=== PATIENT | female | born 1990 | race Caucasian/White ===

== ENCOUNTER 2018-06-29 16:56 | Inpatient (IN) | payer OTHER ==
[2018-06-29] MEDS ORDERED: ACETAMINOPHEN TAB 325 MG TAB PO STA (19:00)
[2018-06-29] MEDS ORDERED: SODIUM CHLORIDE 0.9% 1,000 ML IV ONE (19:00)
[2018-06-29 19:36] LABS: Basophils # (A) 0.1 k/uL (0-0.2); Basophils % (A) 1 %; Eosinophils # (A) 0.1 k/uL (0-0.7); Eosinophils % (A) 2 %; HCT 38.8 % (34.0-46.0); HGB 13.2 gm/dL (11.4-16.0); Lymphocytes # (A) 0.9 k/uL (1.0-4.8); Lymphocytes % (A) 17 %; MCH 30.7 pg (25.0-35.0); MCHC 34.2 g/dL (31.0-37.0); Mean Platelet Volume 7.3; Monocytes # (A) 0.2 k/uL (0-1.0); Monocytes % (A) 4 %; Neutrophils # (A) 3.7 k/uL (1.3-7.7); Neutrophils % (A) 74 %; Platelet Count 198 k/uL (150-450); RBC 4.31 m/uL (3.80-5.40); RDW 13.7 % (11.5-15.5)
[2018-06-29 19:44] LABS: ALT 134 U/L (9-52); AST 85 U/L (14-36); Albumin 3.8 g/dL (3.5-5.0); Alkaline Phosphatase 45 U/L (38-126); Anion Gap 8 mmol/L; Blood Urea Nitrogen 23 mg/dL (7-17); Calcium 9.1 mg/dL (8.4-10.2); Carbon Dioxide 24 mmol/L (22-30); Chloride 111 mmol/L (98-107); Glucose 80 mg/dL (74-99); Potassium 4.4 mmol/L (3.5-5.1); Sodium 143 mmol/L (137-145); Total Bilirubin 1.1 mg/dL (0.2-1.3); Total Protein 6.7 g/dL (6.3-8.2)
[2018-06-29 20:01] LABS: INR 1.4 (<1.2); Partial Thromboplastin Time 28.1 sec (22.0-30.0); Prothrombin Time 13.9 sec (9.0-12.0)
--- NOTE | 2018-06-29 20:05 | CT ---
EXAMINATION TYPE: CT brain wo con DATE OF EXAM: 06/29/2018 COMPARISON: None HISTORY: AMS, confusion CT DLP: 1122.4 mGycm. Automated Exposure Control for Dose Reduction was Utilized. TECHNIQUE: CT scan of the head is performed without contrast. FINDINGS: Ventricles of normal size. There is no mass effect nor midline shift. There is no sign of i ntracranial hemorrhage. Calvarium is intact. IMPRESSION: Negative head CT scan.
--- NOTE | 2018-06-29 20:06 | XR ---
EXAMINATION TYPE: XR chest 2V DATE OF EXAM: 06/29/2018 COMPARISON: NONE HISTORY: Altered mental status TECHNIQUE: Frontal and lateral views of the chest are obtained. FINDINGS: Heart and mediastinum are normal. Lungs are clear. Diaphragm is normal. Bony thorax appear s normal. IMPRESSION: Normal chest
--- NOTE | 2018-06-29 20:06 | XR ---
EXAMINATION TYPE: XR ankle complete LT DATE OF EXAM: 06/29/2018 COMPARISON: NONE HISTORY: Pain TECHNIQUE: 3 views FINDINGS: Ankle mortise is anatomic. I see no fracture nor dislocation. Joint spaces are normal. IMPRESSION: Normal left ankle.
[2018-06-29 21:09] LABS: Appearance,Urine Cloudy (Clear); Bilirubin,Urine Negative (Negative); Blood,Urine Negative (Negative); Color,Urine Dark Yellow; Glucose,Urine (UA) Negative (Negative); Ketones,Urine Trace (Negative); Leukocyte Esterase,Urine Large (Negative); Mucus,Urine Occasional /hpf; Nitrite,Urine Negative (Negative); Protein,Urine 1+ (Negative); RBC,Urine 3 /hpf (0-5); Specific Gravity,Urine 1.029 (1.001-1.035); Squamous Epithelial Cell,Urine 7 /hpf (0-4); WBC,Urine 50 /hpf (0-5)
[2018-06-29 21:12] LABS: Amphetamine Screen,Urine Not Detected (NotDetected); Barbiturate Screen,Urine Not Detected (NotDetected); Benzodiazepines Screen,Urine Not Detected (NotDetected); Cocaine Screen,Urine Not Detected (NotDetected); Methadone Screen, Urine Not Detected (NotDetected); Opiate Screen,Urine Not Detected (NotDetected); Oxycodone Screen, Urine Not Detected (NotDetected); Phencyclidine Screen,Urine Not Detected (NotDetected); Tricyclic Antidepressant,Urine Not Detected (NotDetected); Urn Cannabinoid Scrn Not Detected (NotDetected)
--- NOTE | 2018-06-29 21:31 | ED ---
Recheck HPI <Carlos Eduardo Maki - Last Filed: 06/29/18 23:28> - General Source: patient Mode of arrival: EMS Limitations: no limitations <Maria L Montiel - Last Filed: 06/30/18 00:16> - General Chief Complaint: Recheck/Abnormal Lab/Rx Stated Complaint: Leg pain, confusion Time Seen by Provider: 06/29/18 18:29 - History of Present Illness Initial Comments: This is a 28 year old female who denies past medical history presenting today for multiple complaints. Patient states that she has felt confused the past 1- 2 days as well as having tingling in her feet bilaterally. She states this caused her to fall this morning twisting her left ankle. She states is because the lights were off due to sensation in her feet. Patient denies falling hitting her head or injury to any other extremity. She denies swelling of the left ankle. Patient states that the paresthesias in the feet bilaterally have been ongoing for the past 2 months. Patient states that about a month ago she had similar episode of confusion asking one to 2 days. Asked her to describe further which she got by confusion and she stated short-term memory loss, she is coming by friends who state that doesn't seem to be herself, more fatigued than normal with occasional slurred speech. She denies this occurring prior to 2 months ago. She states she presented at [facility] where she was diagnosed with gastroenteritis and paresthesias. Patient states she does not have any diarrhea, nausea, vomiting or abdominal pain. She is not sure why she was diagnosed with gastroenteritis. She did mention that a month prior she had one episode of vomiting and flulike symptoms however these symptoms have long since subsided. Patient denies any chest pain, lower extremity edema, dysuria, dyspnea exertion, headaches, dizziness, diplopia, visual loss or visual changes , syncope, head injury, nausea, vomiting, diarrhea, fever, chills, cough, urgency, frequency, dysuria, abnormal vaginal bleeding or discharge. Upon arrival patient is alert and oriented 3. Patient is complaining of left ankle pain, she was brought to EMS. VS revealed 100.1F temperature and elevation of HR. Remainder unremarkable. (Maria L Montiel) - Related Data Home Medications Medication Instructions Recorded Confirmed No Known Home Medications 06/29/18 06/29/18 Allergies Allergy/AdvReac Type Severity Reaction Status Date / Time nickel Allergy Unknown Verified 06/29/18 17:23 Review of Systems ROS Other: All systems not noted in ROS Statement are negative. <Carlos Eduardo Maki - Last Filed: 06/29/18 23:28> ROS Other: All systems not noted in ROS Statement are negative. Constitutional: Denies: fever, chills, night sweats ENT: Denies: ear pain, throat pain Respiratory: Denies: cough, dyspnea, wheezes, hemoptysis, stridor Cardiovascular: Denies: chest pain, palpitations, dyspnea on exertion, orthopnea , edema Endocrine: Reports: fatigue Gastrointestinal: Denies: abdominal pain, nausea, vomiting, diarrhea, constipation, hematemesis, melena, hematochezia Genitourinary: Denies: urgency, dysuria, frequency, hematuria, discharge, abnormal menses, dyspareunia Musculoskeletal: Denies: back pain Skin: Denies: rash, lesions Neurological: Reports: weakness, paresthesias, confusion. Denies: headache, numbness, abnormal gait, vertigo <Maria L Montiel - Last Filed: 06/30/18 00:16> ROS Statement: Those systems with pertinent positive or pertinent negative responses have been documented in the HPI. Past Medical History Past Medical History: No Reported History History of Any Multi-Drug Resistant Organisms: None Reported Past Surgical History: No Surgical Hx Reported Past Psychological History: No Psychological Hx Reported Smoking Status: Current every day smoker Past Alcohol Use History: Occasional Past Drug Use History: None Reported <Maria L Montiel - Last Filed: 06/30/18 00:16> General Exam <Carlos Eduardo Maki - Last Filed: 06/29/18 23:28> Limitations: no limitations <Maria L Montiel - Last Filed: 06/30/18 00:16> - General Exam Comments Initial Comments: General: The patient is awake and alert, in no distress. Pt appears lethargic Eye: +3 mm pupils are equal, round and reactive to light, extra-ocular movements are intact. No nystagmus. There is normal conjunctiva bilaterally. No signs of icterus. Ears, nose, mouth and throat: There are moist mucous membranes and no oral lesions. Neck: The neck is supple, there is no tenderness or JVD. No nuchal rigidity, negative Brudzinski's and Kernig. Cardiovascular: There is a regular rate and rhythm. No murmur, rub or gallop is appreciated. Respiratory: Lungs are clear to auscultation, respirations are non-labored, breath sounds are equal. No wheezes, stridor, rales, or rhonchi. Gastrointestinal: Soft, non-distended, non-tender abdomen without masses or organomegaly noted. There is no rebound or guarding present. No CVA tenderness. Bowel sounds are unremarkable. Musculoskeletal: No noted significant soft tissue swelling or ecchymosis of the left ankle. No gross deformity. Normal ROM at the ankles bilaterally, she does admit to tenderness with range of motion of the left ankle. Strength 5/5 of the lower extremity is equally bilaterally including at the left and right ankle. Sensation intact intact of the lower extremities equally bilaterally. DP pulses equal bilaterally 2+. Neurological: A&O x 2. CN II-XII intact, There are no obvious motor or sensory deficits. Coordination appears grossly intact. Speech appears slowed. Skin: Skin is warm and dry and no rashes or lesions are noted. Psychiatric: Cooperative, follows commands (Maria L Montiel) Course <Carlos Eduardo Maki - Last Filed: 06/29/18 23:28> <Maria L Montiel - Last Filed: 06/30/18 00:16> Vital Signs 06/29/18 06/29/18 06/29/18 17:10 20:07 21:08 Temperature 100.1 F H 98.4 F Pulse Rate 86 84 109 H Respiratory 18 18 18 Rate Blood Pressure 121/88 121/84 126/68 O2 Sat by Pulse 100 100 97 Oximetry 06/29/18 06/29/18 06/29/18 22:07 23:16 23:59 Temperature 97.6 F 98.0 F Pulse Rate 92 62 57 L Respiratory 18 18 18 Rate Blood Pressure 104/71 96/58 93/56 O2 Sat by Pulse 98 95 96 Oximetry - Reevaluation(s) Reevaluation #1: 06/29/18 23:29 PA supervision: I proceeded [id number] evaluation the patient she is brought in for altered mental status and abnormal behavior which is going on for some time or the past couple months. Her workup thus far is negative for any definitive processes she did have a recent viral infection per her significant other. It was noted that her liver enzymes are mildly elevated she does not demonstrate any evidence at this time of meningismus. No known family history of any neurological disorders. Patient does have apparently some history of anxiety and possibly some depressive issues. The patient will be admitted for further evaluation. Case is to be discussed with Epifanio Chery who is covering for Dr. Nance. I do agree with the current assessment and plan. (Carlos Eduardo Maki) Medical Decision Making - Lab Data Result diagrams: 06/29/18 18:00 06/29/18 18:00 <Carlos Eduardo Maki - Last Filed: 06/29/18 23:28> - Lab Data Result diagrams: 06/29/18 18:00 06/29/18 18:00 <Maria L Montiel - Last Filed: 06/30/18 00:16> - Medical Decision Making 28yo presenting for altered mental status on off x1.5 months, b/l parathesias and left ankle injury. AAOx2- pt could not state the name of hospital despite being told by family multiple times. Laboratory findings concerning for dehydration. Lactic negative, ammonia negative, mild elevation of liver enzymes. Chest x-ray negative, CT without contrast negative no focal neurological deficit on examination. No meningeal irritation signs. Patient denies any headaches, dizziness, fever, chills. Patient does appear fatigued, she is speaking slowly. No dysarthria. Family members at bedside states this is not normal. They state patient has been sleeping a lot more than usual. At this time we feel pt would benefit from admission for further evaluation of altered mental status. I spoke with admitting provider Nicholas, who accepted admission. Pt was treated with ceftriaxone for UTI and given IV fluids. No further orders from attending physician who will resume patient care/evaluation going forward. Pt transferred to the floor in stable condition. Case was discussed in full length with Dr. Maki who greets impression and plan, he evaluated pt in person and agreed with admission. (Maria L Montiel) - Lab Data Lab Results 06/29/18 06/29/18 06/29/18 Range/Units 18:00 18:00 18:00 WBC 5.0 (3.8-10.6) k/uL RBC 4.31 (3.80-5.40) m/uL Hgb 13.2 (11.4-16.0) gm/dL Hct 38.8 (34.0-46.0) % MCV 90.0 (80.0-100.0) fL MCH 30.7 (25.0-35.0) pg MCHC 34.2 (31.0-37.0) g/dL RDW 13.7 (11.5-15.5) % Plt Count 198 (150-450) k/uL Neutrophils % 74 % Lymphocytes % 17 % Monocytes % 4 % Eosinophils % 2 % Basophils % 1 % Neutrophils # 3.7 (1.3-7.7) k/uL Lymphocytes # 0.9 L (1.0-4.8) k/uL Monocytes # 0.2 (0-1.0) k/uL Eosinophils # 0.1 (0-0.7) k/uL Basophils # 0.1 (0-0.2) k/uL PT 13.9 H (9.0-12.0) sec INR 1.4 H (<1.2) APTT 28.1 (22.0-30.0) sec Sodium 143 (137-145) mmol/L Potassium 4.4 (3.5-5.1) mmol/L Chloride 111 H (98-107) mmol/L Carbon Dioxide 24 (22-30) mmol/L Anion Gap 8 mmol/L BUN 23 H (7-17) mg/dL Creatinine 0.66 (0.52-1.04) mg/dL Est GFR (CKD-EPI)AfAm >90 (>60 ml/min/1.73 sqM) Est GFR (CKD-EPI)NonAf >90 (>60 ml/min/1.73 sqM) Glucose 80 (74-99) mg/dL Plasma Lactic Acid Myron (0.7-2.0) mmol/L Calcium 9.1 (8.4-10.2) mg/dL Total Bilirubin 1.1 (0.2-1.3) mg/dL AST 85 H (14-36) U/L ALT 134 H (9-52) U/L Alkaline Phosphatase 45 (38-126) U/L Ammonia (<30) umol/L Total Protein 6.7 (6.3-8.2) g/dL Albumin 3.8 (3.5-5.0) g/dL Urine Color Urine Appearance (Clear) Urine pH (5.0-8.0) Ur Specific Burnham (1.001-1.035) Urine Protein (Negative) Urine Glucose (UA) (Negative) Urine Ketones (Negative) Urine Blood (Negative) Urine Nitrite (Negative) Urine Bilirubin (Negative) Urine Urobilinogen (<2.0) mg/dL Ur Leukocyte Esterase (Negative) Urine RBC (0-5) /hpf Urine WBC (0-5) /hpf Urine WBC Clumps (None) /hpf Ur Squamous Epith Cells (0-4) /hpf Urine Mucus (None) /hpf Urine HCG, Qual (Not Detectd) Urine Opiates Screen (NotDetected) Ur Oxycodone Screen (NotDetected) Urine Methadone Screen (NotDetected) Ur Propoxyphene Screen (NotDetected) Ur Barbiturates Screen (NotDetected) U Tricyclic Antidepress (NotDetected) Ur Phencyclidine Scrn (NotDetected) Ur Amphetamines Screen (NotDetected) U Methamphetamines Scrn (NotDetected) U Benzodiazepines Scrn (NotDetected) Urine Cocaine Screen (NotDetected) U Marijuana (THC) Screen (NotDetected) 06/29/18 06/29/18 06/29/18 Range/Units 20:00 20:00 20:40 WBC (3.8-10.6) k/uL RBC (3.80-5.40) m/uL Hgb (11.4-16.0) gm/dL Hct (34.0-46.0) % MCV (80.0-100.0) fL MCH (25.0-35.0) pg MCHC (31.0-37.0) g/dL RDW (11.5-15.5) % Plt Count (150-450) k/uL Neutrophils % % Lymphocytes % % Monocytes % % Eosinophils % % Basophils % % Neutrophils # (1.3-7.7) k/uL Lymphocytes # (1.0-4.8) k/uL Monocytes # (0-1.0) k/uL Eosinophils # (0-0.7) k/uL Basophils # (0-0.2) k/uL PT (9.0-12.0) sec INR (<1.2) APTT (22.0-30.0) sec Sodium (137-145) mmol/L Potassium (3.5-5.1) mmol/L Chloride (98-107) mmol/L Carbon Dioxide (22-30) mmol/L Anion Gap mmol/L BUN (7-17) mg/dL Creatinine (0.52-1.04) mg/dL Est GFR (CKD-EPI)AfAm (>60 ml/min/1.73 sqM) Est GFR (CKD-EPI)NonAf (>60 ml/min/1.73 sqM) Glucose (74-99) mg/dL Plasma Lactic Acid Myron 1.5 (0.7-2.0) mmol/L Calcium (8.4-10.2) mg/dL Total Bilirubin (0.2-1.3) mg/dL AST (14-36) U/L ALT (9-52) U/L Alkaline Phosphatase (38-126) U/L Ammonia <9 (<30) umol/L Total Protein (6.3-8.2) g/dL Albumin (3.5-5.0) g/dL Urine Color Dark Yellow Urine Appearance Cloudy H (Clear) Urine pH 7.0 (5.0-8.0) Ur Specific Burnham 1.029 (1.001-1.035) Urine Protein 1+ H (Negative) Urine Glucose (UA) Negative (Negative) Urine Ketones Trace H (Negative) Urine Blood Negative (Negative) Urine Nitrite Negative (Negative) Urine Bilirubin Negative (Negative) Urine Urobilinogen 6.0 (<2.0) mg/dL Ur Leukocyte Esterase Large H (Negative) Urine RBC 3 (0-5) /hpf Urine WBC 50 H (0-5) /hpf Urine WBC Clumps Few H (None) /hpf Ur Squamous Epith Cells 7 H (0-4) /hpf Urine Mucus Occasional H (None) /hpf Urine HCG, Qual (Not Detectd) Urine Opiates Screen Not Detected (NotDetected) Ur Oxycodone Screen Not Detected (NotDetected) Urine Methadone Screen Not Detected (NotDetected) Ur Propoxyphene Screen Not Detected (NotDetected) Ur Barbiturates Screen Not Detected (NotDetected) U Tricyclic Antidepress Not Detected (NotDetected) Ur Phencyclidine Scrn Not Detected (NotDetected) Ur Amphetamines Screen Not Detected (NotDetected) U Methamphetamines Scrn Not Detected (NotDetected) U Benzodiazepines Scrn Not Detected (NotDetected) Urine Cocaine Screen Not Detected (NotDetected) U Marijuana (THC) Screen Not Detected (NotDetected) 06/29/18 Range/Units 20:40 WBC (3.8-10.6) k/uL RBC (3.80-5.40) m/uL Hgb (11.4-16.0) gm/dL Hct (34.0-46.0) % MCV (80.0-100.0) fL MCH (25.0-35.0) pg MCHC (31.0-37.0) g/dL RDW (11.5-15.5) % Plt Count (150-450) k/uL Neutrophils % % Lymphocytes % % Monocytes % % Eosinophils % % Basophils % % Neutrophils # (1.3-7.7) k/uL Lymphocytes # (1.0-4.8) k/uL Monocytes # (0-1.0) k/uL Eosinophils # (0-0.7) k/uL Basophils # (0-0.2) k/uL PT (9.0-12.0) sec INR (<1.2) APTT (22.0-30.0) sec Sodium (137-145) mmol/L Potassium (3.5-5.1) mmol/L Chloride (98-107) mmol/L Carbon Dioxide (22-30) mmol/L Anion Gap mmol/L BUN (7-17) mg/dL Creatinine (0.52-1.04) mg/dL Est GFR (CKD-EPI)AfAm (>60 ml/min/1.73 sqM) Est GFR (CKD-EPI)NonAf (>60 ml/min/1.73 sqM) Glucose (74-99) mg/dL Plasma Lactic Acid Myron (0.7-2.0) mmol/L Calcium (8.4-10.2) mg/dL Total Bilirubin (0.2-1.3) mg/dL AST (14-36) U/L ALT (9-52) U/L Alkaline Phosphatase (38-126) U/L Ammonia (<30) umol/L Total Protein (6.3-8.2) g/dL Albumin (3.5-5.0) g/dL Urine Color Urine Appearance (Clear) Urine pH (5.0-8.0) Ur Specific Burnham (1.001-1.035) Urine Protein (Negative) Urine Glucose (UA) (Negative) Urine Ketones (Negative) Urine Blood (Negative) Urine Nitrite (Negative) Urine Bilirubin (Negative) Urine Urobilinogen (<2.0) mg/dL Ur Leukocyte Esterase (Negative) Urine RBC (0-5) /hpf Urine WBC (0-5) /hpf Urine WBC Clumps (None) /hpf Ur Squamous Epith Cells (0-4) /hpf Urine Mucus (None) /hpf Urine HCG, Qual Not Detected (Not Detectd) Urine Opiates Screen (NotDetected) Ur Oxycodone Screen (NotDetected) Urine Methadone Screen (NotDetected) Ur Propoxyphene Screen (NotDetected) Ur Barbiturates Screen (NotDetected) U Tricyclic Antidepress (NotDetected) Ur Phencyclidine Scrn (NotDetected) Ur Amphetamines Screen (NotDetected) U Methamphetamines Scrn (NotDetected) U Benzodiazepines Scrn (NotDetected) Urine Cocaine Screen (NotDetected) U Marijuana (THC) Screen (NotDetected) - EKG Data EKG Comments: A 12-lead EKG was performed and shows the following: Rate is 83bpm, and rhythm is normal sinus. There are normal QRS complexes and normal R-wave progression. ST segments have no elevation or depression, and [place] segments appear normal. Non spp t wave abnormalities noted. (Maria L Montiel) Disposition <Carlos Eduardo Maki - Last Filed: 06/29/18 23:28> Is patient prescribed a controlled substance at d/c from ED?: No Time of Disposition: 23:27 Decision to Admit Reason: Admit from EC Decision Date: 06/29/18 Decision Time: 23:27 <Maria L Montiel - Last Filed: 06/30/18 00:16> Clinical Impression: Altered mental status, Left ankle injury, UTI (urinary tract infection) Disposition: ADMITTED IP TO THIS HOSP Condition: Stable
[2018-06-29] MEDS ORDERED: ACETAMINOPHEN TAB 325 MG TAB PO PRN (23:27)
[2018-06-29] MEDS ORDERED: NALOXONE 0.4 MG/ML 1 ML VIAL IV PRN (23:27)
[2018-06-30 00:52] VITALS: BMI 23.8
[2018-06-30] MEDS ORDERED: VANCOMYCIN IV PER PHARMACY 1 EACH MISC MISCELLANE PRN (16:27)
--- NOTE | 2018-06-30 16:54 | P.HPIM ---
History of Present Illness 28-year-old female brought in by her boyfriend because of increased confusion details are not clear patient has been confused for 1-2 days has been lethargic for about a week patient denied any UTI symptoms patient denied any cough chest x-ray did not show pneumonia urine is abnormal significantly but the mostly. It appears to be contaminated. Patient does not have any suprapubic pain. Patient had about 2-3 confusional episodes in the last 3 months she sees stop smoking as per the the boyfriend. Patient. The her leg and left ankle x-rays essentially within normal limits. Patient is comparing of bilateral lower limb paresthesias without any back pain. Patient in the past has gastroenteritis. Neurology was consulted because of confusion which is not clear.. Patient also had a fever without any leukocytosis did there is no clear-cut source of infection but urine being abnormal although it's a contamination on continue Rocephin. Later in the day I was called because her blood cultures are positive for gram-positive cocci started her on vancomycin and repeat blood cultures will be up in today and tomorrow unsure whether this is a contamination and not at this time. Infectious disease was consulted. Patient does have elevated liver enzymes because of which I'm obtaining hepatitis panel her urine drug screen is completely negative patient denied any IV drug use in the past patient denied any abdominal pain. Review of Systems REVIEW OF SYSTEMS: CONSTITUTIONAL: No fever, no malaise, no fatigue. HEENT: No recent visual problems or hearing problems. Denied any sore throat. CARDIOVASCULAR: No chest pain, orthopnea, PND, no palpitations, no syncope. PULMONARY: No shortness of breath, no cough, no hemoptysis. GASTROINTESTINAL: No diarrhea, no nausea, no vomiting, no abdominal pain. NEUROLOGICAL: No headaches, no weakness, no numbness. HEMATOLOGICAL: Denies any bleeding or petechiae. GENITOURINARY: Denies any burning micturition, frequency, or urgency. MUSCULOSKELETAL/RHEUMATOLOGICAL: Denies any joint pain, swelling, or any muscle pain. ENDOCRINE: Denies any polyuria or polydipsia. The rest of the 14-point review of systems is negative. Past Medical History Past Medical History: No Reported History History of Any Multi-Drug Resistant Organisms: None Reported Past Surgical History: No Surgical Hx Reported Past Anesthesia/Blood Transfusion Reactions: No Reported Reaction Past Psychological History: Depression Smoking Status: Former smoker Past Alcohol Use History: Occasional Past Drug Use History: None Reported - Past Family History Mother Family Medical History: No Reported History Father Family Medical History: No Reported History Medications and Allergies Home Medications Medication Instructions Recorded Confirmed Type No Known Home Medications 06/29/18 06/29/18 History Allergies Allergy/AdvReac Type Severity Reaction Status Date / Time nickel Allergy Unknown Verified 06/29/18 17:23 Physical Exam Vitals: Vital Signs Temp Pulse Pulse Pulse Resp BP BP 06/30/18 15:00 98.3 F 84 17 06/30/18 07:00 98.7 F 75 17 06/30/18 03:35 18 06/30/18 00:36 97.7 F 82 18 104/65 06/29/18 23:59 98.0 F 57 L 18 93/56 06/29/18 23:16 97.6 F 62 18 96/58 06/29/18 22:07 92 18 104/71 06/29/18 21:08 98.4 F 109 H 18 126/68 06/29/18 20:07 84 18 121/84 06/29/18 17:10 100.1 F H 86 18 121/88 BP Pulse Ox 06/30/18 15:00 106/73 96 06/30/18 07:00 118/80 98 06/30/18 03:35 06/30/18 00:36 100 06/29/18 23:59 96 06/29/18 23:16 95 06/29/18 22:07 98 06/29/18 21:08 97 06/29/18 20:07 100 06/29/18 17:10 100 Intake and Output 06/30/18 06/30/18 06/30/18 06:59 14:59 22:59 Other: Voiding Method Toilet # Voids 1 Weight 63 kg PHYSICAL EXAMINATION: GENERAL: The patient is alert and oriented x3, not in any acute distress. Thin built female HEENT: Pupils are round and equally reacting to light. EOMI. No scleral icterus. No conjunctival pallor. Normocephalic, atraumatic. No pharyngeal erythema. No thyromegaly. CARDIOVASCULAR: S1 and S2 present. No murmurs, rubs, or gallops. PULMONARY: Chest is clear to auscultation, no wheezing or crackles. ABDOMEN: Soft, nontender, nondistended, normoactive bowel sounds. No palpable organomegaly. MUSCULOSKELETAL: No joint swelling or deformity. EXTREMITIES: No cyanosis, clubbing, or pedal edema. NEUROLOGICAL: Gross neurological examination did not reveal any focal deficits. SKIN: No rashes. Results CBC & Chem 7: 06/29/18 18:00 06/29/18 18:00 Labs: Abnormal Lab Results - Last 24 Hours (Table) 06/29/18 06/29/18 06/29/18 Range/Units 18:00 18:00 18:00 Lymphocytes # 0.9 L (1.0-4.8) k/uL PT 13.9 H (9.0-12.0) sec INR 1.4 H (<1.2) Chloride 111 H (98-107) mmol/L BUN 23 H (7-17) mg/dL AST 85 H (14-36) U/L ALT 134 H (9-52) U/L Urine Appearance (Clear) Urine Protein (Negative) Urine Ketones (Negative) Ur Leukocyte Esterase (Negative) Urine WBC (0-5) /hpf Urine WBC Clumps (None) /hpf Ur Squamous Epith Cells (0-4) /hpf Urine Mucus (None) /hpf 06/29/18 Range/Units 20:40 Lymphocytes # (1.0-4.8) k/uL PT (9.0-12.0) sec INR (<1.2) Chloride (98-107) mmol/L BUN (7-17) mg/dL AST (14-36) U/L ALT (9-52) U/L Urine Appearance Cloudy H (Clear) Urine Protein 1+ H (Negative) Urine Ketones Trace H (Negative) Ur Leukocyte Esterase Large H (Negative) Urine WBC 50 H (0-5) /hpf Urine WBC Clumps Few H (None) /hpf Ur Squamous Epith Cells 7 H (0-4) /hpf Urine Mucus Occasional H (None) /hpf Microbiology - Last 24 Hours (Table) 06/29/18 18:00 Blood Culture Gram Stain - Preliminary Blood 06/29/18 18:00 Blood Culture - Final Blood 06/29/18 20:46 Urine Culture - Preliminary Urine,Voided Thrombosis Risk Factor Assmnt - Choose All That Apply Any of the Below Risk Factors Present?: No Other Risk Factors: No Thrombosis Risk Factor Assessment Level: Very Low Risk Assessment and Plan Plan: Altered mental status: Secondary to possible toxic encephalopathy from possibility of sepsis etiology of sepsis is not clear. Patient has positive cultures because of which patient was started on vancomycin and repeat blood cultures are being obtained UTI cannot be completely ruled out because of which I'm continuing on Rocephin infectious disease was consulted and neurology was consulted. -Elevated liver enzymes obtaining hepatitis panel area. -Elevated INR and cuagulopathy etiology of coagulopathy not clear patient does not have any signs of liver dysfunction may be nutritional deficiency of vitamin K prothrombin time is within normal limits -Depression -Former smoker Patient will not need pharmacologic DVT prophylaxis GI prophylaxis early ambulation
[2018-06-30] MEDS: VANCOMYCIN 1,250 MG in SODIUM CHLORIDE 0.9% 250 ML IVPB SCH ×2 (17:18→18:25)
[2018-06-30 18:51] LABS: Hepatitis A Antibody IgM Non-Reactive (Non-Reactive); Hepatitis B Core IgM Non-Reactive (Non-Reactive)
--- NOTE | 2018-06-30 19:50 | P.CNNES ---
History of Present Illness Consult date: 06/30/18 History of Present Illness: The patient is a 28-year-old left-handed white female who reports that 2 months ago she developed tingling in the feet and in the hands. Gradually this became progressive over 2 months. Also 2 months ago she noticed her coordination and balance was off and this also gradually got worse over 2 months. 1 week ago her symptoms became worse and she started falling and requiring the help of her boyfriend to walk. Also there has been difficulty with memory for the past 2 months but worsening over the past 1 week. The patient reports that she did go to an urgent care center and blood work was done in May and everything was negative. Also she went to [facility] 3 weeks ago and was told she had suffered from influenza and was discharged from the ER. Next Patient is from [place] and came to [place] in the winter of 2016. She works from home. She has otherwise been in good health up until 2 months ago. She denies any rash or recent illness prior to 2 months ago. Next Patient denies any headache neck pain back pain visual changes or swallowing disturbance. She denies any fevers or speech disturbance. She states occasionally her memory would be often she'll mix up words. The patient had a CT of the brain in the emergency room which was negative. The patient was admitted to the hospital with altered mental status and UTI. She was also found to have elevated liver enzymes and blood cultures were later found to be positive for gram-positive cocci. She has been placed on vancomycin and Rocephin. Neurology was requested to see the patient regarding confusion. Review of Systems Constitutional: Reports as per HPI Eyes: denies blurred vision, denies pain Ears, nose, mouth and throat: Denies headache, Denies sore throat Cardiovascular: Denies chest pain, Denies shortness of breath Respiratory: Denies cough Genitourinary: Denies dysuria, Denies hematuria Musculoskeletal: Denies myalgias Neurological: Denies numbness, Denies weakness Psychiatric: Denies anxiety, Denies depression Past Medical History Past Medical History: No Reported History History of Any Multi-Drug Resistant Organisms: None Reported Past Surgical History: No Surgical Hx Reported Past Anesthesia/Blood Transfusion Reactions: No Reported Reaction Past Psychological History: Depression Smoking Status: Former smoker Past Alcohol Use History: Occasional Past Drug Use History: None Reported - Past Family History Mother Family Medical History: No Reported History Father Family Medical History: No Reported History Medications and Allergies Home Medications Medication Instructions Recorded Confirmed Type No Known Home Medications 06/29/18 06/29/18 History Allergies Allergy/AdvReac Type Severity Reaction Status Date / Time nickel Allergy Unknown Verified 06/29/18 17:23 Physical Examination - Vital Signs Vital Signs: Vital Signs Temp Pulse Pulse Pulse Resp BP BP 06/30/18 15:00 98.3 F 84 17 06/30/18 07:00 98.7 F 75 17 06/30/18 03:35 18 06/30/18 00:36 97.7 F 82 18 104/65 06/29/18 23:59 98.0 F 57 L 18 93/56 06/29/18 23:16 97.6 F 62 18 96/58 06/29/18 22:07 92 18 104/71 06/29/18 21:08 98.4 F 109 H 18 126/68 06/29/18 20:07 84 18 121/84 BP Pulse Ox 06/30/18 15:00 106/73 96 06/30/18 07:00 118/80 98 06/30/18 03:35 06/30/18 00:36 100 06/29/18 23:59 96 06/29/18 23:16 95 06/29/18 22:07 98 06/29/18 21:08 97 06/29/18 20:07 100 Intake and Output 06/30/18 06/30/18 06/30/18 06:59 14:59 22:59 Other: Voiding Method Toilet # Voids 1 Weight 63 kg - Constitutional General appearance: average body habitus - EENT EENT: PERRL - Respiratory Respiratory: lungs clear - Cardiovascular Cardiovascular: regular rate - Neurologic Neurologic examination: Mental status: Patient was awake alert oriented to person she knew she was in the hospital. She was able to give her date. She was able to tell what city she lived in. She was able to name the president. She was able to do simple additions and subtraction's. She was able to spell words. There is no a aphasia or dysarthria. Cranial nerve examination: Pupils were 2 mm equal round and reactive there is no facial asymmetry visual villa are full and she had a left ISACC X Motor examination: 5 out of 5 throughout Sensory examination: Intact Deep tendon reflexes 2+ and symmetric Gait: Patient was able to stand but felt dizzy. Results - Laboratory Findings CBC and BMP: 06/29/18 18:00 06/29/18 18:00 Abnormal Lab Findings: Abnormal Labs 06/29/18 06/29/18 06/29/18 18:00 18:00 18:00 Lymphocytes # 0.9 L PT 13.9 H INR 1.4 H Chloride 111 H BUN 23 H AST 85 H ALT 134 H Urine Appearance Urine Protein Urine Ketones Ur Leukocyte Esterase Urine WBC Urine WBC Clumps Ur Squamous Epith Cells Urine Mucus 06/29/18 20:40 Lymphocytes # PT INR Chloride BUN AST ALT Urine Appearance Cloudy H Urine Protein 1+ H Urine Ketones Trace H Ur Leukocyte Esterase Large H Urine WBC 50 H Urine WBC Clumps Few H Ur Squamous Epith Cells 7 H Urine Mucus Occasional H Assessment and Plan (1) Encephalopathy Current Visit: Yes Status: Acute SNOMED Code(s): 26577860 (2) Ataxia Current Visit: Yes Status: Acute SNOMED Code(s): 86598421 (3) Paresthesias Current Visit: Yes Status: Acute SNOMED Code(s): 61889529 Plan: The patient is a 28-year-old woman with a two-month history of altered mental status paresthesias of her hands and feet difficulty walking and loss of coordination. Over the past 1 week all her symptoms progressed to the point where she was no longer able to walk by herself. She is admitted to the hospital with UTI. She has positive blood culture for gram-negative cocci. Her liver enzymes are elevated. On neurologic examination she has ataxia and a left ISACC. Recommend MRI of the brain to rule out demyelinating process. Also will be scheduled to have spinal tap to rule out MS. Lyme's titer has been sent. MRA will be done because of family history of aneurysms.
[2018-06-30] MEDS ORDERED: traZODone HCL 50 MG TAB PO SCH (21:30)
--- NOTE | 2018-06-30 21:44 | MR ---
EXAMINATION TYPE: MR brain wo con DATE OF EXAM: 06/30/2018 COMPARISON: None HISTORY: Confusion, AMS, encephalopathy Standard multiplanar, multisequence MRI departmental protocol Multiplanar, multisequence images of the brain were acquired. Diffusion weighted imaging was performe d. FINDINGS: Ventricles and sulci appear normal. There is no mass effect nor midline shift. There is no sign of intracranial hemorrhage. The cadena-white matter structures have fairly normal signal pattern. There is no evidence of edema. There is no evidence of cortical infarct. Corpus callosum appears norm al. Brainstem is intact. Sella turcica appears normal. IMPRESSION: Negative MR scan of the brain.
--- NOTE | 2018-06-30 21:46 | MR ---
EXAMINATION TYPE: MR angio head wo con DATE OF EXAM: 06/30/2018 COMPARISON: None HISTORY: Confusion, AMS, encephalopathy TECHNIQUE: Time of flight images focusing on the [place] were performed without contrast. FINDINGS: There is arterial flow demonstrated in the anterior middle and posterior cerebral arteries. There is arterial flow in the vertebrobasilar artery system. The distal vertebral arteries are symme tric. I see no evidence of aneurysm or neovascularity. IMPRESSION: Normal MR angiogram of the brain.
--- NOTE | 2018-06-30 23:18 | CONS ---
CONSULTATION DATE OF SERVICE: 06/30/2018. REASON FOR CONSULTATION: Positive blood culture. HISTORY OF PRESENT ILLNESS: The patient is a 28-year-old female, otherwise healthy, presenting to the ER at [facility] with chief complaint of confusion and tingling in her feet bilaterally. Apparently it has been going on for a couple of weeks, almost a month. Apparently she seemed to have slight worsening for the last 2 days with some confusion. The patient denies having any headache. No urinary symptoms. No chest pain, shortness of breath, cough. No abdominal pain. No nausea, vomiting, or any diarrhea. However, the patient has also been complaining of short-term memory loss. With these symptoms the patient has been evaluated by the ER physician. On arrival to the ER, the patient did have a low-grade fever of 100.1. No further fever has been recorded. The patient's white count was normal. Urine was positive with large leukocyte esterase with 15 WBC. Urine drug screen was negative. Liver enzymes were mildly elevated. The patient was started on Rocephin for urinary tract infection, however, the blood culture has now come back positive gram-positive cocci. Vancomycin was added. Infectious Disease was consulted for further recommendation regarding antibiotic therapy. The patient did have a CT of the brain which did not show any acute abnormality. REVIEW OF SYSTEMS: Positive points have been mentioned in HPI. The rest of the review of systems has been negative. PAST MEDICAL HISTORY: Depression. PAST SURGICAL HISTORY: No surgeries. SOCIAL HISTORY: Remote history of smoking. Occasionally drinks. No drug use. FAMILY HISTORY: No pertinent findings noticed. ALLERGIES: NICKEL. MEDICATIONS: The patient is currently on vancomycin, Narcan, Rocephin and Tylenol. PHYSICAL EXAMINATION: Blood pressure is 106/73 with a pulse of 84, temperature 98.3, 96% on room air. GENERAL DESCRIPTION: A middle-aged female lying in bed in no distress. No tachypnea or accessory muscle of respiration use. HEENT: Shows no pallor or scleral icterus. Oral mucosa is dry. No pharyngeal erythema or thrush neck trachea central. No thyromegaly. LUNGS: Unlabored breathing. Clear to auscultation anteriorly. No wheeze or crackle. HEART: S1, S2. Regular rate and rhythm. ABDOMEN: Soft, no tenderness. No guarding or rigidity. EXTREMITIES: No edema of the feet. SKIN: No rash or mass palpable. NEUROLOGIC: The patient is awake, alert, oriented x3. Mood and affect normal. LABS: BUN of 23, creatinine 0.6. Electrolytes have been normal. Liver enzymes remain elevated. Hemoglobin is 13.1 and 5.0. UA has been positive. Urine culture pending. Blood culture with gram-positive cocci. DIAGNOSTIC IMPRESSION AND PLAN: 1. Patient admitted to the hospital with confusion, which is likely multifactorial in this patient who did have a low-grade fever with positive underlying urinary tract infection not entirely excluded. The patient also had evidence of elevated liver enzymes, however, no significant tenderness in right upper quadrant was noticed. Question of possible viral hepatitis and less likely a gallbladder disease. 2. The patient with a positive blood culture with question of possible skin contamination, however, will need further workup if the organism is finalized other than Staphylococcus epidermidis. PLAN: 1. Blood cultures has been repeated to document clearance of bacteremia. 2. We will obtain ultrasound of the liver and gallbladder to rule out abnormality in view of elevated liver enzymes. 3. We will check hepatitis panel. 4. Rocephin 1 g daily and vancomycin to continue while waiting for further cultures to finalize. 5. We will follow up on clinical condition and culture and further adjust medication if needed. Thank you for this consultation, will follow this patient along with you. MMODL / IJN: [id number] /
[2018-07-01] MEDS: VANCOMYCIN 1,250 MG in SODIUM CHLORIDE 0.9% 250 ML IVPB SCH ×4 (04:27→19:54)
[2018-07-01 07:25] LABS: HCT 34.2 % (34.0-46.0); HGB 11.6 gm/dL (11.4-16.0); MCHC 33.9 g/dL (31.0-37.0); MCV 88.5 fL (80.0-100.0); Mean Platelet Volume 7.2; Platelet Count 186 k/uL (150-450); RBC 3.87 m/uL (3.80-5.40); RDW 13.7 % (11.5-15.5); WBC 4.7 k/uL (3.8-10.6)
[2018-07-01 07:31] LABS: INR 1.3 (<1.2); Prothrombin Time 13.4 sec (9.0-12.0)
[2018-07-01 07:47] LABS: ALT 102 U/L (9-52); AST 35 U/L (14-36); Albumin 3.1 g/dL (3.5-5.0); Alkaline Phosphatase 52 U/L (38-126); Anion Gap 7 mmol/L; Blood Urea Nitrogen 7 mg/dL (7-17); Calcium 8.8 mg/dL (8.4-10.2); Carbon Dioxide 23 mmol/L (22-30); Chloride 111 mmol/L (98-107); Glucose 111 mg/dL (74-99); Potassium 3.5 mmol/L (3.5-5.1); Sodium 141 mmol/L (137-145); Total Bilirubin 0.5 mg/dL (0.2-1.3); Total Protein 5.8 g/dL (6.3-8.2)
[2018-07-01] MEDS ORDERED: LIDOCAINE 1% INJ 10MG/ML (20 ML MDV) SQ STA (10:27)
[2018-07-01] MEDS ORDERED: MIDAZOLAM (PF) 2 MG/2 ML VIAL IVP STA (10:35)
[2018-07-01 10:45] LABS: Hepatitis A Ab, Total Reactive (Non-Reactive)
--- NOTE | 2018-07-01 10:54 | P.PCN ---
Date of Procedure: 07/01/18 Preoperative Diagnosis: rule out Multiple Sclerosis Postoperative Diagnosis: Same Procedure(s) Performed: Diagnostic lumbar puncture Disposition: no change Description of Procedure: New patient consult was sent by Dr. Weathers for diagnostic lumbar puncture to rule out multiple sclerosis. I examined the patient noticed that she has significant weakness in bilateral lower and upper extremities. She has normal sensation bilateral upper and lower extremities. Her right arm is flexed slightly and weaker than her left arm. Her Vadim sign is negative. Deep tendon reflexes are brisk in the lower extremities compared to the upper extremities. Patient awake and alert and oriented 3. Her significant other is at the bedside. She denies that she is on any blood thinning medications. I reviewed her medication list and she is not on any blood thinners. I discussed the risks benefits and alternatives to the procedure with the patient. Patient is in agreement and signed the consent. Timeout was performed with myself in the RN in the room. Procedure: Lumbar Puncture . Preoperative Diagnoses: Multiple sclerosis Postoperative Diagnosis: Same Anesthesia: IV sedation with Versed and local Condition: stable. Complications: none. Description of the procedure: Patient on medical pate was placed in sitting position and monitors applied, the back prepped with chlorhexidine x 3, sterile technique, with sterile gloves , mask and surgical cap. Local infiltration of the skin with lidocaine 1% 2 mL , then 22-gauge quickie Needle advanced slowly paramedian at L3 4 interlaminar space, the cerebrospinal fluid was clear, and no heme no paresthesia, a total of 10 mL of clear cerebrospinal fluid collected in 4 different tubes, the needle removed, Band-Aid applied , patient tolerated the procedure well without any complications, and further management as per her neurologist
[2018-07-01 11:22] VITALS: RESP 16
[2018-07-01] MEDS ORDERED: SODIUM CHLORIDE 0.9% 500 ML 500 ML IV ONE (11:22)
--- NOTE | 2018-07-01 11:39 | US ---
EXAMINATION TYPE: US abdomen complete DATE OF EXAM: 07/01/2018 COMPARISON: NONE CLINICAL HISTORY: UTI , Elevated liver enzymes. EXAM MEASUREMENTS: Liver Length: 11.3 cm Gallbladder Wall: 0.3 cm CBD: 0.3 cm Spleen: 9.6 cm Right Kidney: 9.9 x 4.1 x 5.6 cm Left Kidney: 11.2 x 5.2 x 4.8 cm Pancreas: partially obscured by bowel gas Liver: wnl Gallbladder: No stones seen, has a contracted appearance. Patient had some crackers this am. Evidence for sonographic Willoughby's sign: No CBD: wnl Spleen: wnl Right Kidney: No hydronephrosis or masses seen Left Kidney: No hydronephrosis or masses seen Upper IVC: wnl Abd Aorta: wnl IMPRESSION: 1. Visualized abdomen ultrasound appears unremarkable
[2018-07-01 12:20] LABS: Appearance,CSF Clear; CSF Tube Number 4; Nucleated Cells, CSF 2 u/L (0-5); Red Blood Cell,CSF 1 u/L (0-10)
[2018-07-01 12:41] LABS: Appearance,CSF Clear; CSF Tube Number 1; Nucleated Cells, CSF 1 u/L (0-5); Red Blood Cell,CSF 1 u/L (0-10)
[2018-07-01 13:10] LABS: Glucose,CSF 60 mg/dL (40-70); Total Protein,CSF 32 mg/dL (12-60)
[2018-07-01] MEDS: ceFAZolin IN SWFI 2 GM/20 ML SYRINGE IVP SCH (16:39)
--- NOTE | 2018-07-01 16:40 | P.PN ---
Subjective Progress Note Date: 07/01/18 Patient is a 28-year-old woman with history of altered mental status. Seizures and difficulty walking. He presented to the hospital with UTI fever and confusion. Today she is doing much better according to herself and her boyfriend. She was able to stand and walk also. He had an MRI of the brain which was normal. She had a spinal tap and preliminary results are negative. Patient has no new complaints. She is being treated for UTI and undergoing testing for elevated liver enzymes. Objective - Vital Signs Vital signs: Vital Signs Temp 97.7 F 07/01/18 15:00 Pulse 82 07/01/18 15:00 Resp 16 07/01/18 15:00 BP 114/72 07/01/18 15:00 Pulse Ox 97 07/01/18 15:00 Intake & Output 06/30/18 07/01/18 07/01/18 18:59 06:59 18:59 Intake Total 850 500 Balance 850 500 Intake: IV 500 Sodium Chloride 0.9% 500 500 ml 500 ml @ 999 mls/hr IV .Q31M ONE Rx#:[id number] Intake, IV Titration 850 Amount Sodium Chloride 0.9% 1, 600 000 ml @ 75 mls/hr IV . [id number] ONE Rx#:[id number] Vancomycin 1,250 mg In 250 Sodium Chloride 0.9% 250 ml @ 125 mls/hr IVPB Q8H [facility] Rx#:[id number] Other: Voiding Method Toilet # Voids 1 3 - Constitutional General appearance: Present: cooperative - EENT Eyes: Present: EOMI ENT: Present: hearing grossly normal - Neurologic Neurologic: Present: CNII-XII intact - Musculoskeletal Musculoskeletal: Present: strength equal bilaterally - Psychiatric Psychiatric: Present: A&O x's 3 - Labs CBC & Chem 7: 07/01/18 06:25 07/01/18 06:25 Labs: Abnormal Lab Results - Last 24 Hours (Table) 07/01/18 07/01/18 07/01/18 Range/Units 06:25 06:25 06:25 PT 13.4 H (9.0-12.0) sec INR 1.3 H (<1.2) Chloride 111 H (98-107) mmol/L Glucose 111 H (74-99) mg/dL ALT 102 H (9-52) U/L Total Protein 5.8 L (6.3-8.2) g/dL Albumin 3.1 L (3.5-5.0) g/dL Hepatitis A Ab Total Reactive H (Non-Reactive) Microbiology - Last 24 Hours (Table) 06/29/18 18:00 Blood Culture Gram Stain - Preliminary Blood Blood Culture - Preliminary Staphylococcus aureus 06/29/18 20:46 Urine Culture - Final Urine,Voided 06/29/18 18:00 Blood Culture - Final Blood Assessment and Plan (1) Encephalopathy Current Visit: Yes Status: Acute SNOMED Code(s): 98990208 (2) Ataxia Current Visit: Yes Status: Acute SNOMED Code(s): 73181782 (3) Paresthesias Current Visit: Yes Status: Acute SNOMED Code(s): 73423102 Plan: The patient is a 28-year-old woman with a two-month history of altered mental status paresthesias of her hands and feet difficulty walking and loss of coordination. The patient had an MRI of the brain today which was negative. She underwent a spinal tap and preliminary results are negative. Patient is feeling better and according to her boyfriend she did walk without assistance just holding the IV stand. Neurologically patient is stable. She states that she does have some a stigmatism and the eyes. Continue close neuro checks.
--- NOTE | 2018-07-01 18:17 | P.PN ---
Subjective Progress Note Date: 07/01/18 28-year-old female is noted is admitted to hospital because of increasing fatigue malaise and neurological complaints of confusion and difficulty with ambulation. She's had some progressive tingling and weakness to the bilateral lower extremities that has worsened over time. Also has had some difficulties with confusion. Her significant other is present and relates that in the last few days she had a marked worsening of her status in that she became considerably more confused and was having increasing difficulties trying to get up and around where they live. Because of this she was brought to the emergency center with evidence of leukocytosis and low-grade fever she was admitted. Also evidence of some elevated liver enzymes. Infectious diseases follow-up is occurring today because of the positive blood culture. The patient at this time is lying in bed. She is able to answer questions without great difficulty. She moves upper and lower extremities on command. She appears to be less confused than yesterday. Objective - Vital Signs Vital signs: Vital Signs Temp 97.7 F 07/01/18 15:00 Pulse 82 07/01/18 15:00 Resp 16 07/01/18 15:00 BP 114/72 07/01/18 15:00 Pulse Ox 97 07/01/18 15:00 Intake & Output 06/30/18 07/01/18 07/01/18 18:59 06:59 18:59 Intake Total 850 500 Balance 850 500 Intake: IV 500 Sodium Chloride 0.9% 500 500 ml 500 ml @ 999 mls/hr IV .Q31M ONE Rx#:[id number] Intake, IV Titration 850 Amount Sodium Chloride 0.9% 1, 600 000 ml @ 75 mls/hr IV . [id number] ONE Rx#:[id number] Vancomycin 1,250 mg In 250 Sodium Chloride 0.9% 250 ml @ 125 mls/hr IVPB Q8H [facility] Rx#:[id number] Other: Voiding Method Toilet # Voids 1 3 - Exam 28-year-old female supine comfortable poor dentition HEENT: Anicteric conjunctiva are pink and moist nasal mucosa grossly intact without significant lesions, there is no thrush. Neck: The neck is supple without significant lymphadenopathy or thyromegaly. Lungs: Good bilateral air entry without significant crackles or wheezing. There is no significant bronchial sounds. There is no egophony or dullness. Heart: Regular rate and rhythm with an audible S1-S2, no S3 no S4. There is no significant murmur click or rub, PMI was nondisplaced. Abdomen: Positive bowel sounds soft and nontender without palpable masses or organomegaly. There was no guarding or rebound. Extremities: The upper extremities have excellent pulses they are symmetric, no significant petechiae or telangiectasia. No splinter hemorrhages were noted. The lower extremities are free from significant edema. The peripheral pulses were 2+ and symmetric. Neuro: She is awake and alert seems to know that she is in the hospital recognizes her significant other without difficulties. Does move upper and lower extremities on command, is noted by neurology has a bit of an ataxic gait , and does have a bit of leg and the left eye upon extra ocular movement exam - Labs CBC & Chem 7: 07/01/18 06:25 07/01/18 06:25 Labs: Abnormal Lab Results - Last 24 Hours (Table) 07/01/18 07/01/18 07/01/18 Range/Units 06:25 06:25 06:25 PT 13.4 H (9.0-12.0) sec INR 1.3 H (<1.2) Chloride 111 H (98-107) mmol/L Glucose 111 H (74-99) mg/dL ALT 102 H (9-52) U/L Total Protein 5.8 L (6.3-8.2) g/dL Albumin 3.1 L (3.5-5.0) g/dL Hepatitis A Ab Total Reactive H (Non-Reactive) Microbiology - Last 24 Hours (Table) 06/29/18 18:00 Blood Culture Gram Stain - Preliminary Blood Blood Culture - Preliminary Staphylococcus aureus 06/29/18 20:46 Urine Culture - Final Urine,Voided 06/29/18 18:00 Blood Culture - Final Blood Laboratory Results WBC 4.7 k/uL (3.8-10.6) 07/01/18 06:25 RBC 3.87 m/uL (3.80-5.40) 07/01/18 06:25 Hgb 11.6 gm/dL (11.4-16.0) 07/01/18 06:25 Hct 34.2 % (34.0-46.0) 07/01/18 06:25 MCV 88.5 fL (80.0-100.0) 07/01/18 06:25 MCH 30.0 pg (25.0-35.0) 07/01/18 06:25 MCHC 33.9 g/dL (31.0-37.0) 07/01/18 06:25 RDW 13.7 % (11.5-15.5) 07/01/18 06:25 Plt Count 186 k/uL (150-450) 07/01/18 06:25 Neutrophils % 74 % 06/29/18 18:00 Lymphocytes % 17 % 06/29/18 18:00 Monocytes % 4 % 06/29/18 18:00 Eosinophils % 2 % 06/29/18 18:00 Basophils % 1 % 06/29/18 18:00 Neutrophils # 3.7 k/uL (1.3-7.7) 06/29/18 18:00 Lymphocytes # 0.9 k/uL (1.0-4.8) L 06/29/18 18:00 Monocytes # 0.2 k/uL (0-1.0) 06/29/18 18:00 Eosinophils # 0.1 k/uL (0-0.7) 06/29/18 18:00 Basophils # 0.1 k/uL (0-0.2) 06/29/18 18:00 PT 13.4 sec (9.0-12.0) H 07/01/18 06:25 INR 1.3 (<1.2) H 07/01/18 06:25 APTT 27.0 sec (22.0-30.0) 06/30/18 18:25 Sodium 141 mmol/L (137-145) 07/01/18 06:25 Potassium 3.5 mmol/L (3.5-5.1) 07/01/18 06:25 Chloride 111 mmol/L (98-107) H 07/01/18 06:25 Carbon Dioxide 23 mmol/L (22-30) 07/01/18 06:25 Anion Gap 7 mmol/L 07/01/18 06:25 BUN 7 mg/dL (7-17) 07/01/18 06:25 Creatinine 0.55 mg/dL (0.52-1.04) 07/01/18 06:25 Est GFR (CKD-EPI)AfAm >90 (>60 ml/min/1.73 sqM) 07/01/18 06:25 Est GFR (CKD-EPI)NonAf >90 (>60 ml/min/1.73 sqM) 07/01/18 06:25 Glucose 111 mg/dL (74-99) H 07/01/18 06:25 Plasma Lactic Acid Myron 1.5 mmol/L (0.7-2.0) 06/29/18 20:00 Calcium 8.8 mg/dL (8.4-10.2) 07/01/18 06:25 Total Bilirubin 0.5 mg/dL (0.2-1.3) 07/01/18 06:25 AST 35 U/L (14-36) 07/01/18 06:25 ALT 102 U/L (9-52) H 07/01/18 06:25 Alkaline Phosphatase 52 U/L (38-126) 07/01/18 06:25 Ammonia <9 umol/L (<30) 06/29/18 20:00 Total Protein 5.8 g/dL (6.3-8.2) L 07/01/18 06:25 Albumin 3.1 g/dL (3.5-5.0) L 07/01/18 06:25 Urine Color Dark Yellow 06/29/18 20:40 Urine Appearance Cloudy (Clear) H 06/29/18 20:40 Urine pH 7.0 (5.0-8.0) 06/29/18 20:40 Ur Specific [place] 1.029 (1.001-1.035) 06/29/18 20:40 Urine Protein 1+ (Negative) H 06/29/18 20:40 Urine Glucose (UA) Negative (Negative) 06/29/18 20:40 Urine Ketones Trace (Negative) H 06/29/18 20:40 Urine Blood Negative (Negative) 06/29/18 20:40 Urine Nitrite Negative (Negative) 06/29/18 20:40 Urine Bilirubin Negative (Negative) 06/29/18 20:40 Urine Urobilinogen 6.0 mg/dL (<2.0) 06/29/18 20:40 Ur Leukocyte Esterase Large (Negative) H 06/29/18 20:40 Urine RBC 3 /hpf (0-5) 06/29/18 20:40 Urine WBC 50 /hpf (0-5) H 06/29/18 20:40 Urine WBC Clumps Few /hpf (None) H 06/29/18 20:40 Ur Squamous Epith Cells 7 /hpf (0-4) H 06/29/18 20:40 Urine Mucus Occasional /hpf (None) H 06/29/18 20:40 Urine HCG, Qual Not Detected (Not Detectd) 06/29/18 20:40 CSF Tube Number 1 07/01/18 10:45 CSF Volume 3.0 07/01/18 10:45 CSF Appearance Clear 07/01/18 10:45 CSF Color Colorless 07/01/18 10:45 CSF RBC 1 u/L (0-10) 07/01/18 10:45 CSF Tot Nucleated Cells 1 u/L (0-5) 07/01/18 10:45 CSF Glucose 60 mg/dL (40-70) 07/01/18 10:45 CSF Total Protein 32 mg/dL (12-60) 07/01/18 10:45 Urine Opiates Screen Not Detected (NotDetected) 06/29/18 20:40 Ur Oxycodone Screen Not Detected (NotDetected) 06/29/18 20:40 Urine Methadone Screen Not Detected (NotDetected) 06/29/18 20:40 Ur Propoxyphene Screen Not Detected (NotDetected) 06/29/18 20:40 Ur Barbiturates Screen Not Detected (NotDetected) 06/29/18 20:40 U Tricyclic Antidepress Not Detected (NotDetected) 06/29/18 20:40 Ur Phencyclidine Scrn Not Detected (NotDetected) 06/29/18 20:40 Ur Amphetamines Screen Not Detected (NotDetected) 06/29/18 20:40 U Methamphetamines Scrn Not Detected (NotDetected) 06/29/18 20:40 U Benzodiazepines Scrn Not Detected (NotDetected) 06/29/18 20:40 Urine Cocaine Screen Not Detected (NotDetected) 06/29/18 20:40 U Marijuana (THC) Screen Not Detected (NotDetected) 06/29/18 20:40 Hepatitis A IgM Ab Non-Reactive (Non-Reactive) 06/29/18 18:00 Hepatitis A Ab Total Reactive (Non-Reactive) H 07/01/18 06:25 Hep Bs Antigen Non-Reactive (Non-Reactive) 06/29/18 18:00 Hep B Core IgM Ab Non-Reactive (Non-Reactive) 06/29/18 18:00 Hep C IgG Ab Non-Reactive (Non-Reactive) 06/29/18 18:00 Microbiology 06/29/18 18:00 Blood Blood Culture Gram Stain - Preliminary 06/29/18 18:00 Blood Blood Culture - Preliminary Staphylococcus aureus 06/29/18 20:46 Urine,Voided Urine Culture - Final 06/29/18 18:00 Blood Blood Culture - Final - Imaging and Cardiology MRI - abdomen: report reviewed (No evidence of any tumor, abscess, or obvious demyelinating disease, MRA without aneurysm) Assessment and Plan (1) Altered mental status Current Visit: Yes Status: Acute Code(s): R41.82 - ALTERED MENTAL STATUS, UNSPECIFIED SNOMED Code(s): 175811308 (2) Staphylococcus aureus bacteremia Narrative/Plan: 28-year-old female who is not an active injection drug user, presents to Hospital with altered mental still status, increasing weakness that markedly worsened over the last few days before admission but had been occurring for the last few months. Has been seen by neurology and workup for the vomiting diseases in process. Lumbar puncture was performed and the fluid appears to be clear and colorless and further analysis is in process. Does not appear to have an acute infectious process of the central nervous system. MRIs without evidence of brain abscess or other space occupying lesions There is evidence of the staph aureus bacteremia source is not clear. Spontaneous bacteremia as do occur and is very concerning at this time. Echocardiogram requested to evaluate for the possibility of underlying endocarditis. All blood cultures have also been requested. We'll also initiate autoimmune evaluation given her central nervous system findings. Current Visit: Yes Status: Acute Code(s): R78.81 - BACTEREMIA SNOMED Code( s): 869422853
--- NOTE | 2018-07-01 22:28 | DS ---
DISCHARGE SUMMARY DATE OF SERVICE: 07/01/2018 FINAL DIAGNOSES: 1. Generalized weakness, gait instability for evaluation, rule out meningeal encephalitis. 2. Left lateral rectus paralysis. 3. Possible peripheral neuropathy. 4. Possible sepsis with Staph aureus. 5. Elevated LFTs. 6. Increased PT/INR. 7. History of depression. 8. Remote history of nicotine dependence. DISCHARGE DISPOSITION: The patient being transferred to [facility] in stable condition. Guarded prognosis. Total time taken 35 minutes. HISTORY OF PRESENT ILLNESS: This 28-year-old woman previously healthy, was complaining of 2 months duration of generalized weakness, tiredness and also difficulty in walking. The patient was taken to the hospital yesterday with complaints of increasing weakness and also some confusion change in mental status. The patient was thought to have a sepsis and was treated with antibiotic empirically. Staph aureus was grown from the culture. Final ID is pending at this time. On exam, patient was found to have features of peripheral neuropathy, gait instability and left lateral rectus paralysis. Initial evaluation including a CT scan of the brain and MRI and MRA were normal. The lumbar puncture showed protein of 32 and glucose of 60 and I discussed the case at length with [facility], Dr. Mary, and the patient being transferred to [facility] in stable condition. Guarded prognosis. Recommend the patient follow up with primary care physician closely after discharge from [facility]. CURRENT MEDICATIONS: 1. Tylenol p.r.n. 2. Rocephin 1 g daily. 3. Vancomycin 1.25 mg q.8. MMLIONL / PHILIPN: [id number] /
[2018-07-02] MEDS: ceFAZolin IN SWFI 2 GM/20 ML SYRINGE IVP SCH ×3 (00:50→15:52)
[2018-07-02] MEDS: VANCOMYCIN 1,250 MG in SODIUM CHLORIDE 0.9% 250 ML IVPB SCH ×2 (05:14→12:16)
--- NOTE | 2018-07-02 08:21 | PN ---
PROGRESS NOTE DATE OF SERVICE: 07/01/2018 This 28-year-old woman with a past medical history of no significant medical issues, admitted with increasing progressive weakness and difficulty in walking for the last 2 months. The patient was noted to have peripheral neuropathy and as well as left at this time. The patient also was found to have staph aureus sepsis. Final ID is pending at this time. The patient also had mild coagulopathy and elevated LFTs, present on admission as well. Lumbar puncture has been done which showed normal proteus and final reports are pending at this time. The patient being closely monitored. PAST MEDICAL HISTORY: Reviewed. REVIEW OF SYSTEMS: CARDIOVASCULAR: No angina or palpitations. RESPIRATIONS: As mentioned earlier. GI as mentioned earlier. no dysuria. Nervous System: As mentioned earlier. CURRENT MEDICATIONS ARE: Reviewed and include: Tylenol p.r.n., Kefzol 2 g IV q.8h, vancomycin and Narcan. PHYSICAL EXAM: The patient is alert, oriented x3. The pulse is 74, blood pressure 106/68, respiration 16, temperature 98.1, pulse ox 96% on room air. HEENT: Conjunctivae normal. Oral mucosa moist. NECK is no jugular venous distention. No carotid bruit. No lymph node enlargement. CARDIOVASCULAR SYSTEM: S1, S2. RESPIRATORY: Breath sounds diminished in the bases. A few scattered rhonchi. No crackles. ABDOMEN: Soft, nontender. No mass palpable. LEGS: No edema. No swelling. NERVOUS SYSTEM: Higher functions as mentioned earlier. Otherwise, significant sensory abnormalities. Romberg sign is positive. Heel to toe walking is impaired. Left lateral leg spasm present. Skin: No ulcer, rash, bleeding. LAB STUDIES: WBC 4.2, hemoglobin 11.6, and INR is 1.3. Sodium 141, potassium 3.5. ASSESSMENT: 1. 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 2. Staph aureus sepsis, possibly. 3. Elevated LFTs. 4. Increased PT/INR. 5. Mild coagulopathy of undetermined origin. 6. Depression. 7. History of nicotine dependence. RECOMMENDATIONS AND DISCUSSION: In this 28-year-old woman who presented with multiple medical issues, we will monitor the patient closely, continue the current medications, management. Symptomatic treatment. I would recommend continue the antibiotics. I will also discuss the case with [facility] for further evaluation and treatment. Prognosis guarded because of multiple complex medical issues. We will await final reports from the LP lumbar puncture. Further recommendations to follow. MMODL / IJN: [id number] / MTDMike
[2018-07-02] MEDS ORDERED: VANCOMYCIN TROUGH DUE 1 EACH MISC MISCELLANE ONE ×2 (11:00→19:00)
--- NOTE | 2018-07-02 14:39 | P.PN ---
Subjective Progress Note Date: 07/02/18 Patient is a 28-year-old woman with history of progressive problems with mentation and balance over the last 3 months as well as complaints of paresthesias. Her spinal fluid results are negative to date. Does not appear to be any signs of central nervous system infection. Her MRI of the brain is negative. The patient denies headache or neck pain. She denies any new complaints. Her boyfriend states that her mentation is back to baseline. The patient however is still not able to walk without the assistive device of a walker. He is being treated for bacteremia and UTI. Objective - Vital Signs Vital signs: Vital Signs Temp 98.2 F 07/02/18 14:29 Pulse 71 07/02/18 14:29 Resp 16 07/02/18 14:29 BP 123/76 07/02/18 14:29 Pulse Ox 98 07/02/18 14:16 Intake & Output 07/01/18 07/02/18 07/02/18 18:59 06:59 18:59 Intake Total 500 250 Balance 500 250 Intake: IV 500 Sodium Chloride 0.9% 500 500 ml 500 ml @ 999 mls/hr IV .Q31M ONE Rx#:[id number] Intake, IV Titration 250 Amount Vancomycin 1,250 mg In 250 Sodium Chloride 0.9% 250 ml @ 125 mls/hr IVPB Q8H [facility] Rx#:[id number] Other: # Voids 3 2 2 - Constitutional General appearance: Present: cooperative - EENT Eyes: Present: PERRLA ENT: Present: hearing grossly normal - Respiratory Respiratory: bilateral: CTA - Cardiovascular Rhythm: regular - Neurologic Neurologic Comment(s): Neurologic examination: Mental status: Awake alert and oriented 3 Cranial nerve examination: No facial asymmetry next Motor examination no focal weakness Deep tendon reflexes: Intact and symmetric - Labs CBC & Chem 7: 07/01/18 06:25 07/01/18 06:25 Labs: Abnormal Lab Results - Last 24 Hours (Table) 07/02/18 Range/Units 06:31 Vancomycin Trough 48.4 H* ug/mL Microbiology - Last 24 Hours (Table) 07/01/18 06:25 Blood Culture - Preliminary Blood No Growth after 24 hours 07/01/18 10:45 CSF Gram Stain - Preliminary Cerebral Spinal Fluid CSF Culture - Preliminary 06/30/18 18:25 Blood Culture - Preliminary Blood No Growth after 24 hours Assessment and Plan (1) Encephalopathy Current Visit: Yes Status: Acute SNOMED Code(s): 41049008 (2) Ataxia Current Visit: Yes Status: Acute SNOMED Code(s): 79141666 (3) Paresthesias Current Visit: Yes Status: Acute SNOMED Code(s): 94143008 Plan: The patient is a 28-year-old woman with a two-month history of altered mental status paresthesias of her hands and feet difficulty walking and loss of coordination. The patient had an MRI of the brain today which was negative. She underwent a spinal tap and preliminary results are negative. Patient is still having difficulty with ambulation. Agree with plan for possible transfer to [facility] neurology for further investigation with EMG and nerve conduction studies.
--- NOTE | 2018-07-02 14:40 | P.CON ---
Consult Note - . Consult date: 07/02/18 Assessment/Plan:: 28 y/o admitted for UTI problems and positive blood culture. She is being seen for the red eye and discomfort noted in the right eye for the last day or so. She is full-time contact lens wearer who does not have a pair of glasses for backup. She was last seen at [facility] about 3 months ago. She denies any discharge from the eye recently, and has supposedly removed the contacts from eyes after admission. There is no prior injury or surgical correction to either of the eyes or any known medical problems. Additionally she denies any previous problems with the contact lens wear. PE: (not dilated) Va: without correction? 20/30 OD, 20/40 OS EOM: full conjunctiva: injected, trace right, no discharge: normal white and quiet OS; no lymph nodes appreciated Cornea: SCL in place on right eye, steamy with central erosion no SCL clear AC: D&Q A: contact lens overwear. with erosion no noted infection. Removed contact at slit lamp. P: needs to obtain glasses and not wear any contacts until cleared medically. Start on moxifloxacin 4 times daily until cornea healed Artificial tears several times daily to offset sensation ( expected to be bothersome for about 24-48 hours at worst. Will see in office when released, may not be able to follow on transfer.
[2018-07-02] MEDS ORDERED: ARTIFICIAL TEARS-HYPROMELLOSE DROPS 15 ML BTL BOTH EYES PRN (14:41)
--- NOTE | 2018-07-02 15:33 | DS ---
DISCHARGE SUMMARY DATE OF SERVICE: 07/02/2018. HISTORY OF PRESENT ILLNESS: This 28-year-old woman who was admitted with multiple medical issues including ataxia, change in mental status with possible meningoencephalitis was slated to go to [facility] yesterday. However, the family declined and today the patient is now feeling better. Still ataxia. I discussed with the case with the hospitalist at [facility]. The patient will be transferred in stable condition. Guarded prognosis. Please refer to the previous dictation for further evaluation and treatment. The patient also had right-sided conjunctival injection which is probably due to contact lens according to the cabin supervisor. The possibility of toxic toxins also to be considered. On exam, vital signs are stable. Cardio system: S1, S2. Abdomen soft. Nervous system: No focal deficits. Please refer to my previous dictation for list of diagnoses and medications. MMODL / IJN: [id number] /
[2018-07-02] MEDS: MOXIFLOXACIN HCL 0.5% DROPS 3 ML BTL RIGHT EYE SCH ×2 (15:50→17:09)
[2018-07-02 19:38] VITALS: BP 113/61; PULSE 70; TEMP 98.6
[2018-07-03 11:01] LABS: Rheumatoid Factor 8 IU/mL (0-15)
[2018-07-05 10:46] LABS: VDRL, Qualitative CSF Nonreactive (Nonreactive)
[2018-07-05 12:40] LABS: IgG - CSF 1.6 mg/dL (0.0 - 3.4); IgG/Albumin Index (CSF) 0.46 (0.00 - 0.77)
== END 2018-07-02 20:09 | disposition short-term general hospital (02) | DRG 871 ==
LOC: EC 16:56 → 4SSUR 23:28 → OBSVTOIN 07-02 11:41
PROVIDERS: ADMIT Internal Medicine; ATTEND Internal Medicine
DX: A41.01 Sepsis due to Methicillin susceptible Staphylococcus aureus (principal); G04.90 Encephalitis and encephalomyelitis, unspecified; D68.9 Coagulation defect, unspecified; G93.40 Encephalopathy, unspecified; N39.0 Urinary tract infection, site not specified; G62.9 Polyneuropathy, unspecified; F17.200 Nicotine dependence, unspecified, uncomplicated; F32.9 Major depressive disorder, single episode, unspecified; H49.9 Unspecified paralytic strabismus; S99.912A Unspecified injury of left ankle, initial encounter; R27.0 Ataxia, unspecified; R74.8 Abnormal levels of other serum enzymes; W19.XXXA Unspecified fall, initial encounter
CPT/HCPCS: 36415; 70450; 70544; 70551; 71046; 76700; 80053; 80074; 80202; 80306; 81001; 81025; 82040; 82042; 82140; 82175; 82570; 82784; 82945; 83605; 83655; 83825; 83916; 84157; 85025; 85027; 85610; 85652; 85730; 86038; 86140; 86431; 86592; 86618; 86708; 86780; 87040; 87070; 87077; 87086; 87150; 87186; 87205; 87801; 88108; 89050; 93005; 96361; 96365; 99285

== ENCOUNTER 2021-06-29 08:04 | Emergency (ER) | payer OTHER ==
[2021-06-29 08:18] VITALS: RESP 18
[2021-06-29] MEDS ORDERED: SODIUM CHLORIDE 0.9% 1,000 ML IV STA (08:33)
[2021-06-29] MEDS ORDERED: ONDANSETRON 4 MG/2 ML VIAL IVP STA (08:33)
--- NOTE | 2021-06-29 08:47 | ED ---
General Adult HPI - General Chief complaint: Nausea/Vomiting/Diarrhea Stated complaint: Dehydration Time Seen by Provider: 06/29/21 08:18 Source: patient Mode of arrival: ambulatory Limitations: no limitations - History of Present Illness Initial comments: This 31-year-old female presents the emergency department with nausea x24 hrs and vomiting 2 times. Patient states yesterday she was nauseous and today vomited 2 times. Patient states she has experienced symptoms like this in her past, but has never not been able to keep water down, she states she feels dehydrated. She denies hemoptysis, fever, diarrhea, chest pain. - Related Data Previous Rx's Medication Instructions Recorded Ondansetron [Zofran ODT] 4 mg PO Q12HR #6 tab 06/29/21 Allergies Allergy/AdvReac Type Severity Reaction Status Date / Time nickel Allergy Unknown Verified 06/29/21 09:05 Review of Systems ROS Statement: Those systems with pertinent positive or pertinent negative responses have been documented in the HPI. ROS Other: All systems not noted in ROS Statement are negative. Past Medical History Past Medical History: No Reported History History of Any Multi-Drug Resistant Organisms: None Reported Past Surgical History: No Surgical Hx Reported Past Anesthesia/Blood Transfusion Reactions: No Reported Reaction Past Psychological History: Depression Smoking Status: Never smoker Past Alcohol Use History: Occasional Past Drug Use History: Marijuana - Past Family History Mother Family Medical History: No Reported History Father Family Medical History: No Reported History General Exam Limitations: no limitations General appearance: alert, in no apparent distress Head exam: Present: atraumatic, normocephalic, normal inspection Eye exam: Present: normal appearance Neck exam: Present: normal inspection Respiratory exam: Present: normal lung sounds bilaterally. Absent: respiratory distress, wheezes, rales, rhonchi, stridor Cardiovascular Exam: Present: regular rate, normal rhythm, normal heart sounds. Absent: systolic murmur, diastolic murmur, rubs, gallop, clicks GI/Abdominal exam: Present: soft, normal bowel sounds. Absent: distended, tenderness, guarding, rebound, rigid Neurological exam: Present: alert, oriented X3 Psychiatric exam: Present: normal affect, normal mood Skin exam: Present: warm, dry, intact, pallor Course Vital Signs 06/29/21 06/29/21 08:15 09:52 Temperature 97.6 F Pulse Rate 81 71 Respiratory 18 18 Rate Blood Pressure 121/66 121/66 O2 Sat by Pulse 97 100 Oximetry Medical Decision Making - Medical Decision Making this 31-year-old female presents to the emergency department for nausea and vomiting 24 hours. Fluids and Zofran given, relieving symptoms. Labs revealed with +hcg. Patient told to follow up with OB in 24-48 hours. Patient sent home in stable condition. Return precautions discussed. - Lab Data Result diagrams: 06/29/21 08:40 06/29/21 08:40 Lab Results 06/29/21 06/29/21 06/29/21 Range/Units 08:40 08:40 08:40 WBC 9.1 (3.8-10.6) k/uL RBC 4.46 (3.80-5.40) m/uL Hgb 13.4 (11.4-16.0) gm/dL Hct 40.2 (34.0-46.0) % MCV 90.2 (80.0-100.0) fL MCH 30.1 (25.0-35.0) pg MCHC 33.4 (31.0-37.0) g/dL RDW 12.5 (11.5-15.5) % Plt Count 310 (150-450) k/uL MPV 7.3 Neutrophils % 73 % Lymphocytes % 17 % Monocytes % 5 % Eosinophils % 3 % Basophils % 1 % Neutrophils # 6.7 (1.3-7.7) k/uL Lymphocytes # 1.5 (1.0-4.8) k/uL Monocytes # 0.4 (0-1.0) k/uL Eosinophils # 0.3 (0-0.7) k/uL Basophils # 0.1 (0-0.2) k/uL Sodium 137 (137-145) mmol/L Potassium 3.8 (3.5-5.1) mmol/L Chloride 106 (98-107) mmol/L Carbon Dioxide 23 (22-30) mmol/L Anion Gap 8 mmol/L BUN 7 (7-17) mg/dL Creatinine 0.61 (0.52-1.04) mg/dL Est GFR (CKD-EPI)AfAm >90 (>60 ml/min/1.73 sqM) Est GFR (CKD-EPI)NonAf >90 (>60 ml/min/1.73 sqM) Glucose 98 (74-99) mg/dL Calcium 9.2 (8.4-10.2) mg/dL Total Bilirubin 0.5 (0.2-1.3) mg/dL AST 16 (14-36) U/L ALT 13 (4-34) U/L Alkaline Phosphatase 54 (38-126) U/L Total Protein 7.2 (6.3-8.2) g/dL Albumin 4.1 (3.5-5.0) g/dL Amylase 69 (30-110) U/L Lipase 60 (23-300) U/L Urine Color Yellow Urine Appearance Cloudy H (Clear) Urine pH 6.0 (5.0-8.0) Ur Specific Adams 1.027 (1.001-1.035) Urine Protein Trace H (Negative) Urine Glucose (UA) Negative (Negative) Urine Ketones Negative (Negative) Urine Blood Negative (Negative) Urine Nitrite Negative (Negative) Urine Bilirubin Negative (Negative) Urine Urobilinogen <2.0 (<2.0) mg/dL Ur Leukocyte Esterase Large H (Negative) Urine RBC 1 (0-5) /hpf Urine WBC 11 H (0-5) /hpf Ur Squamous Epith Cells 11 H (0-4) /hpf Urine Bacteria Rare H (None) /hpf Urine Mucus Many H (None) /hpf Urine HCG, Qual (Not Detectd) 06/29/21 Range/Units 08:40 WBC (3.8-10.6) k/uL RBC (3.80-5.40) m/uL Hgb (11.4-16.0) gm/dL Hct (34.0-46.0) % MCV (80.0-100.0) fL MCH (25.0-35.0) pg MCHC (31.0-37.0) g/dL RDW (11.5-15.5) % Plt Count (150-450) k/uL MPV Neutrophils % % Lymphocytes % % Monocytes % % Eosinophils % % Basophils % % Neutrophils # (1.3-7.7) k/uL Lymphocytes # (1.0-4.8) k/uL Monocytes # (0-1.0) k/uL Eosinophils # (0-0.7) k/uL Basophils # (0-0.2) k/uL Sodium (137-145) mmol/L Potassium (3.5-5.1) mmol/L Chloride (98-107) mmol/L Carbon Dioxide (22-30) mmol/L Anion Gap mmol/L BUN (7-17) mg/dL Creatinine (0.52-1.04) mg/dL Est GFR (CKD-EPI)AfAm (>60 ml/min/1.73 sqM) Est GFR (CKD-EPI)NonAf (>60 ml/min/1.73 sqM) Glucose (74-99) mg/dL Calcium (8.4-10.2) mg/dL Total Bilirubin (0.2-1.3) mg/dL AST (14-36) U/L ALT (4-34) U/L Alkaline Phosphatase (38-126) U/L Total Protein (6.3-8.2) g/dL Albumin (3.5-5.0) g/dL Amylase (30-110) U/L Lipase (23-300) U/L Urine Color Urine Appearance (Clear) Urine pH (5.0-8.0) Ur Specific Adams (1.001-1.035) Urine Protein (Negative) Urine Glucose (UA) (Negative) Urine Ketones (Negative) Urine Blood (Negative) Urine Nitrite (Negative) Urine Bilirubin (Negative) Urine Urobilinogen (<2.0) mg/dL Ur Leukocyte Esterase (Negative) Urine RBC (0-5) /hpf Urine WBC (0-5) /hpf Ur Squamous Epith Cells (0-4) /hpf Urine Bacteria (None) /hpf Urine Mucus (None) /hpf Urine HCG, Qual Detected (Not Detectd) Disposition Clinical Impression: Disposition: HOME SELF-CARE Instructions (If sedation given, give patient instructions): Acute Nausea and Vomiting (ED) Additional Instructions: Follow-up with OB in 24-48 hours. Return to the emergency department if symptoms worsen or vaginal bleeding occurs. Prescriptions: Ondansetron [Zofran ODT] 4 mg PO Q12HR #6 tab Is patient prescribed a controlled substance at d/c from ED?: No Referrals: None,Stated [Primary Care Provider] - 1-2 days Decision Time: 10:40
[2021-06-29 09:05] LABS: Basophils # (A) 0.1 k/uL (0-0.2); Basophils % (A) 1 %; Eosinophils # (A) 0.3 k/uL (0-0.7); Eosinophils % (A) 3 %; HCT 40.2 % (34.0-46.0); HGB 13.4 gm/dL (11.4-16.0); Lymphocytes # (A) 1.5 k/uL (1.0-4.8); Lymphocytes % (A) 17 %; MCH 30.1 pg (25.0-35.0); MCHC 33.4 g/dL (31.0-37.0); MCV 90.2 fL (80.0-100.0); Mean Platelet Volume 7.3; Monocytes # (A) 0.4 k/uL (0-1.0); Monocytes % (A) 5 %; Neutrophils # (A) 6.7 k/uL (1.3-7.7); Neutrophils % (A) 73 %; Platelet Count 310 k/uL (150-450); RBC 4.46 m/uL (3.80-5.40); RDW 12.5 % (11.5-15.5); WBC 9.1 k/uL (3.8-10.6)
[2021-06-29 09:10] LABS: ALT 13 U/L (4-34); AST 16 U/L (14-36); African American GFR (CKD) >90 (>60 ml/min/1.73 sqM); Albumin 4.1 g/dL (3.5-5.0); Alkaline Phosphatase 54 U/L (38-126); Amylase 69 U/L (30-110); Anion Gap 8 mmol/L; Blood Urea Nitrogen 7 mg/dL (7-17); Calcium 9.2 mg/dL (8.4-10.2); Carbon Dioxide 23 mmol/L (22-30); Chloride 106 mmol/L (98-107); Glucose 98 mg/dL (74-99); Lipase 60 U/L (23-300); Non-African American GFR(CKD) >90 (>60 ml/min/1.73 sqM); Potassium 3.8 mmol/L (3.5-5.1); Sodium 137 mmol/L (137-145); Total Bilirubin 0.5 mg/dL (0.2-1.3); Total Protein 7.2 g/dL (6.3-8.2)
[2021-06-29 09:19] LABS: Appearance,Urine Cloudy (Clear); Bacteria,Urine Rare /hpf; Bilirubin,Urine Negative (Negative); Blood,Urine Negative (Negative); Color,Urine Yellow; Glucose,Urine (UA) Negative (Negative); Ketones,Urine Negative (Negative); Leukocyte Esterase,Urine Large (Negative); Mucus,Urine Many /hpf; Nitrite,Urine Negative (Negative); Protein,Urine Trace (Negative); RBC,Urine 1 /hpf (0-5); Specific Gravity,Urine 1.027 (1.001-1.035); Squamous Epithelial Cell,Urine 11 /hpf (0-4); Urobilinogen,Urine <2.0 mg/dL (<2.0); WBC,Urine 11 /hpf (0-5)
[2021-06-29 10:48] VITALS: BP 122/78; PULSE 66; TEMP 97.8
== END 2021-06-29 10:47 | disposition home or self-care (01) ==
LOC: EC 08:04
DX: O21.9 Vomiting of pregnancy, unspecified (principal); Z3A.00 Weeks of gestation of pregnancy not specified; Z91.09 Other allergy status, other than to drugs and biological substances
CPT/HCPCS: 36415; 80053; 82150; 83690; 85025; 81001; 81025; 87086; 99284; 96374; 96361; J2405